=== PATIENT | male | born 1950 | race Caucasian/White ===

== ENCOUNTER 2016-11-01 08:19 | Emergency (ER) | payer OTHER ==
[~2016-11-01] VITALS: Wt 78.0 kg
[~2016-11-01 08:19] MED LIST: ALBU2.5V3 NEB; ALBU8.5H3 INH; AZIT250T94 PO; BENA40TA41 PO; HYD25 PO; PRED20TA PO; PROM5SYR2 PO
[2016-11-01] MEDS ORDERED: ONDANSETRON (ODT) 4 MG TAB ODT STA (09:08)
[2016-11-01] MEDS ORDERED: HYDROCODONE/APAP (5/325) TAB PO ONE (09:30)
--- NOTE | 2016-11-01 11:08 | RADRPT ---
PROCEDURE: XR Chest. CLINICAL INDICATION: Right rib pain and 65-year-old male. TECHNIQUE: Single frontal view of the chest was obtained COMPARISON: Right rib series 11/01/2016 2017 hours. FINDINGS: The soft tissues are normal. There are degenerative osteophytes in the thoracic spine. The heart, cardiomediastinal silhouette, pulmonary vasculature and hilar structures are normal. There are vascu lar calcifications aortic arch. The lungs are clear but are mildly hyperinflated. No acute rib frac ture pneumothorax or hemothorax is identified. The costophrenic angles are normal. IMPRESSION: 1. No evidence of a pneumothorax or acute rib fracture. 2. Atherosclerosis of the aortic arch. 3. Spondylosis of the thoracic spine. 4. Mild pulmonary hyperinflation. RPTAT:AAJJ Physician Nathen Date Time Electronically viewed and signed by Abdiaziz Avery Physician on 11/01/2016 11:08 TRAMAINE/
--- NOTE | 2016-11-01 11:17 | RADRPT ---
PROCEDURE: XR ribs and AP chest. CLINICAL INDICATION: 65-year-old male with right rib pain. TECHNIQUE: AP chest and AP and oblique views of the right ribs were obtained. COMPARISON: Chest x-ray 07/19/2016. FINDINGS: There are atherosclerotic calcifications in the aortic arch. There are degenerative osteophytes in the thoracic spine. The soft tissues are generous. The heart, pulmonary vasculature, lung allen an d pleural spaces are normal. No pneumothorax or rib fractures identified. No pleural effusion or he mothorax is noted. IMPRESSION: 1. Spondylosis of the thoracic spine. 2. Atherosclerosis of the aortic arch. 3. Pulmonary hyperinflation of the right lung with no evidence of a rib fracture, hemothorax or pne umothorax. RPTAT:AAJJ Physician Nathen Date Time Electronically viewed and signed by Abdiaziz Avery Physician on 11/01/2016 11:17 TRAMAINE/
[2016-11-01] MEDS ORDERED: HYDR-906 PO (11:24)
[2016-11-01] MEDS ORDERED: NAPR-260 PO (11:24)
[2016-11-01 11:32] VITALS: BP 132/78; PULSE 78; RESP 18; TEMP 98
--- NOTE | 2016-11-01 17:13 | ERD ---
DATE OF SERVICE: HISTORY OF PRESENT ILLNESS: The patient is a 65-year-old male complaining of right rib pain after a mechanical fall yesterday. Patient was sitting at a table, he tripped and fell and hit the corner of the table. He has taken 600 mg of Advil with mild alleviation of his symptoms, but he has pain t o breathe to the right side of his ribs. He denies any shortness of breath, no hemoptysis. PAST MEDICAL HISTORY: COPD. ALLERGIES TO MEDICATIONS: DENIES. SURGICAL HISTORY: Denies. SOCIAL HISTORY: Denies. REVIEW OF SYSTEMS: A 12-point review of systems was done. Refer to HPI for positives, all other sy stems negative. PHYSICAL EXAMINATION VITAL SIGNS: Temperature is 98, pulse 91, blood pressure is 139/81, respiratory rate 18, O2 saturat ion 99% on room air. Pain intensity is 0/10. GENERAL: The patient is well-appearing, well-nourished, no acute distress. HEART: Regular rate and rhythm. No murmurs, clicks, rubs or gallops. No S3 or S4. CHEST: Clear to auscultation bilaterally. There are no rales, wheezes or rhonchi. SKIN: There is no apparent rash or petechia. The skin is warm and dry. No crepitus felt on the ski n. BACK: Normal. EMERGENCY ROOM COURSE: The patient had a 1-view chest x-ray done in the ER which showed: 1. No evidence of pneumothorax or acute rib fracture. 2. Atherosclerosis of the aortic arch. 3. Spondylosis of the thoracic spine. 4. Mild pulmonary hyperinflation. Patient also had a 2-view x-ray done of the right ribs, which showed spondylosis of the thoracic spi ne, atherosclerosis of the aortic arch, and pulmonary hyperinflation of the right lung with no evide nce of rib fracture, hemothorax, or pneumothorax. DIAGNOSIS: Rib contusion. MEDICAL DECISION MAKING: I have low suspicion for rib fracture, low suspicion for pneumothorax, low suspicion for hemothorax. The patient likely sustained a rib contusion secondary to mechanism, and vitals and exam are within normal limits. DISCHARGE: The patient is discharged stable. Patient given prescription for [place] and naproxen, an d told to follow up with primary care within 1 to 2 days for reevaluation. The patient is recommend ed to continue taking deep breaths to avoid on development of pneumonia. All other questions answer ed at time of discharge. Discharge summary given at the time of departure. Patient understood and complied with plan. Dictated By: EMERSON LANCASTER for DLATON CAI/ELENA Conf#: [id number] DID#: [id number]
== END 2016-11-01 11:33 | disposition home or self-care (01) ==
LOC: FTE 08:19
DX: S20.211A Contusion of right front wall of thorax, initial encounter (principal); J44.9 Chronic obstructive pulmonary disease, unspecified; W01.190A Fall on same level from slipping, tripping and stumbling with subsequent striking against furniture, initial encounter; Y92.9 Unspecified place or not applicable; Z87.891 Personal history of nicotine dependence
CPT/HCPCS: 71010; 71100

== ENCOUNTER 2016-11-13 07:01 | Emergency (ER) | payer OTHER ==
[~2016-11-13] VITALS: Ht 162.6 cm; Wt 72.0 kg
[~2016-11-13 07:01] MED LIST changes: +HYDR-906 PO; +NAPR-260 PO
[2016-11-13 07:03] VITALS: Ht 162.6 cm; Wt 72.0 kg
[2016-11-13] MEDS ORDERED: HYDROCODONE/APAP (10/325) TAB PO ONE (07:30)
[2016-11-13 07:50] LABS: ADD UMIC YES; URINE BILIRUBIN (Dip) NEGATIVE (NEGATIVE); URINE BLOOD (Dip) TRACE (NEGATIVE); URINE COLOR YELLOW (YELLOW); URINE KETONES (Dip) TRACE (NEGATIVE); URINE LEUKOCYTE ESTERASE (Dip) NEGATIVE (NEGATIVE); URINE NITRITE (Dip) NEGATIVE (NEGATIVE); URINE TOTAL PROTEIN (Dip) TRACE (NEGATIVE); URINE UROBILINOGEN (Dip) 0.2 E.U./dL (0.1-1.0)
[2016-11-13 08:10] LABS: BACTERIA,URINE RARE; URINE RBCS 0-2 /HPF (0)
--- NOTE | 2016-11-13 08:35 | RADRPT ---
PROCEDURE: CT chest, abdomen and pelvis without contrast and with 3-D reconstructions CLINICAL INDICATION: right flank pain, r/o lower rib fx vs urolithiasis TECHNIQUE: CT scan of the abdomen and pelvis without contrast was performed on a multislice CT [facility]. 3-D sagittal and coronal reformatted images were obtained from the axial source images. DLP 1109.81 mGycm CTDIvol 14.71 mGy COMPARISON: CT abdomen/pelvis from 01/17/2013 FINDINGS: There are no focal consolidations. There is no evidence of significant pulmonary contusion. There are 2 ground-glass opacities in the right upper lobe each measuring approximately 9 mm on series 4, images 24 and 28. There is no pleural fluid. There is no pneumothorax. Heart size is within normal limits. There is no pericardial fluid. The aorta is within normal limi ts. There are no enlarged axillary or mediastinal lymph nodes. The liver is homogenous in attenuation. Again noted is a cystic lesion in segments 6 and 7 of the li yasmani measuring up to 7.6 x 7.2 cm in maximum axial dimensions, compared with up to 6.2 x 6.[address] th e CT study from 2012. There is no intrahepatic or extrahepatic biliary ductal dilatation. The gall bladder is within normal limits. The spleen, pancreas, and adrenal glands are within normal limits. The kidneys are symmetric and without focal lesions. There are no renal calculi. There is no obstruc tive uropathy. There are no dilated or thickened loops of bowel. The appendix is within normal limits. There are n umerous colonic diverticula without evidence of diverticulitis. The aorta is within normal limits. There are no enlarged mesenteric, periaortic, or retroperitoneal lymph nodes. The bladder is within normal limits. There is no free air. There is no free fluid. There are no enlarged intrapelvic or inguinal lymph nodes. Small fat - containing bilateral inguinal hernias are again noted. IMPRESSION: No evidence of an acute rib fracture or pulmonary contusion. No renal/ureteral calculi or hydronephrosis. There is a large benign - appearing cystic lesion in the right lobe of the liver measuring up to 7.6 cm which has mildly increased in size compared to the prior CT study from 2013 where it measured up to 6.2 cm. Consider ultrasound for further evaluation, if indicated. There are 2 ground-glass opacities each measuring approximately 9 mm in the right upper lobe which a re nonspecific. Consider obtaining an initial 3-month follow-up CT for further evaluation as per [place] eischner Society criteria for subsolid pulmonary nodules. Numerous colonic diverticula without evidence of diverticulitis. Normal appendix. Small fat - containing bilateral inguinal hernias. RPTAT: EE Physician Idania Date Time Electronically viewed and signed by Julio C Simmons Physician on 11/13/2016 08:34 /
[2016-11-13] MEDS ORDERED: CYCL-319 PO (08:47)
[2016-11-13] MEDS ORDERED: HYDR-902 PO (08:47)
--- NOTE | 2016-11-13 08:57 | ERD ---
ER Documentation Chief Complaint Date/Time DATE: 11/13/16 TIME: 08:50 Chief Complaint low back pain. injury 2 weeks ago. HPI 65-year-old male complaining of right lower rib pain 2 weeks. He injured it while playing with his sons 2 weeks ago, was seen here at that time. Last 3 days, his pain has gotten worse. Pain is worse with breathing or movement. He was given [place] and muscle relaxant for pain at his last visit, which have helped. But he has run out of medications. Patient also reports slight dysuria , but no fever or chills. No vomiting or diarrhea. Patient reports history of diabetes, hypertension, COPD, BPH, and kidney stones. ROS All systems reviewed and are negative except as per history of present illness. Medications Home Meds Active Scripts Cyclobenzaprine Hcl* (Cyclobenzaprine Hcl*) 10 Mg Tablet, 10 MG PO TID Y for MUSCLE SPASMS, #15 TAB Prov:FANNY MATHEWS. CUSTOMER SERVICE ANALYST 11/13/16 Hydrocodone/Acetaminophen ([place] 10-325 Tablet) 1 Each Tablet, 1 TAB PO Q6H Y for PAIN, #15 TAB Prov:FANNY MATHEWS. CUSTOMER SERVICE ANALYST 11/13/16 Naproxen* (Naprosyn*) 500 Mg Tablet, 500 MG PO BID Y for PAIN AND/OR INFLAMMATION, #30 TAB Prov:KAYLIN FREEMAN PA-C 11/01/16 Hydrocodone/Acetaminophen ([place] 5-325 Tablet) 1 Each Tablet, 1 TAB PO Q6H Y for PAIN, #7 TAB Prov:KAYLIN FREEMAN PA-C 11/01/16 Promethazine HCl/Codeine (Prometh-Codein 6.25-10 mg/5 ml) 5 Ml Syrup, 5 ML PO TID for 5 Days Prov:MEJIA QUIROZ MD 07/19/16 Albuterol Sulfate* (Albuterol Sulfate* Neb) 0.083%-3 Ml Neb, 2.5 MG NEB Q4 Y for SHORTNESS OF BREATH, #30 EA Prov:MEJIA QUIROZ MD 07/19/16 Prednisone* (Prednisone*) 20 Mg Tab, 20 MG PO DAILY for 5 Days, TAB Prov:MEJIA QUIROZ MD 07/19/16 Azithromycin* (Zithromax*) 250 Mg Tablet, 250 MG PO .ZPACK DIRECTED, #6 TAB TAKE 500 MG (2 TABS) THE FIRST DAY THEN 250 MG (1 TAB) DAYS 2-5 Prov:MEJIA QUIROZ MD 07/19/16 Prednisone* (Prednisone*) 20 Mg Tab, 40 MG PO DAILY, #8 TAB Prov:KAYLIN FREEMAN PA-C 09/11/15 Albuterol Sulfate* (Proair HFA*) 8.5 Gm Hfa.aer.ad, 2 PUFF INH Q4, #1 INHALER Prov:KAYLIN FREEMAN PA-C 09/11/15 Reported Medications Hydrochlorothiazide* (Hydrochlorothiazide*) 25 Mg Tab, 25 MG PO DAILY, #30 TAB 09/13/15 Benazepril Hcl* (Benazepril Hcl*) 40 Mg Tablet, 40 MG PO DAILY, #30 TAB 09/13/15 Allergies Allergies: Coded Allergies: No Known Drug Allergies (Verified Allergy, Mild, 09/13/15) PMhx/Soc Medical and Surgical Hx: pt denies Medical Hx, pt denies Surgical Hx History of Surgery: Yes Anesthesia Reaction: No Hx Neurological Disorder: No Hx Respiratory Disorders: Yes (copd) Hx Cardiac Disorders: No Hx Psychiatric Problems: No Hx Miscellaneous Medical Probl: No Hx Alcohol Use: No Hx Substance Use: No Hx Tobacco Use: No Smoking Status: Never smoker Physical Exam Vitals Vital Signs Date Time Temp Pulse Resp B/P Pulse Ox O2 Delivery O2 Flow Rate FiO2 11/13/16 07:03 97.3 96 20 162/90 10 Physical Exam General impression: Well-developed, well-nourished. Alert, oriented, in no acute distress Head: Normocephalic, atraumatic. Eyes: PERRL, EOM normal. Sclerae are normal. Conjunctiva not injected. Neck: Supple, nontender. No lymphadenopathy. No nuchal rigidity. Respiration: Normal respiratory effort. Lungs clear to auscultate bilaterally. No wheezes, rales or rhonchi. Cardiovascular: Regular rate and rhythm. No murmurs or extra heart sounds. Abdomen: Abdomen normal to inspection. Nontender. No masses or organomegaly. Bowel sounds normal. Back: Normal to inspection. No midline spine tenderness. No CVA tenderness. Right lower rib point tenderness in the posterior aspect. Extremities: Extremities normal to inspection, nontender. ROM normal. Neuro: Mental status normal, speech normal. GLASS PROCESSING WORKER grossly intact. Skin: Normal turgor. No rash or lesions. Psych: Normal mood and affect. Results 24 hrs Laboratory Tests Test 11/13/16 07:42 Urine Color YELLOW Urine Clarity CLEAR Urine pH 6.0 Urine Specific [place] >=1.030 Urine Ketones TRACE Urine Nitrite NEGATIVE Urine Bilirubin NEGATIVE Urine Urobilinogen 0.2 E.U./dL Urine Leukocyte Esterase NEGATIVE Urine Microscopic RBC 0-2/HPF Urine Microscopic WBC 0-2/HPF Urine Epithelial Cells RARE Urine Bacteria RARE Urine Hemoglobin TRACE Urine Glucose 0.1%% Urine Total Protein TRACE Current Medications Medications (Trade) Dose Ordered Sig/Shawn Route PRN Reason Start Time Stop Time Status Last Admin Dose Admin Acetaminophen/ Hydrocodone Bitart ([place] (79/697)) 1 tab ONCE ONCE PO 11/13/16 07:30 11/13/16 07:31 DC 11/13/16 07:41 PROCEDURE: CT chest, abdomen and pelvis without contrast and with 3-D reconstructions CLINICAL INDICATION: right flank pain, r/o lower rib fx vs urolithiasis TECHNIQUE: CT scan of the abdomen and pelvis without contrast was performed on a multislice CT scanner. 3-D sagittal and coronal reformatted images were obtained from the axial source images. DLP 1109.81 mGycm CTDIvol 14.71 mGy COMPARISON: CT abdomen/pelvis from 01/17/2013 FINDINGS: There are no focal consolidations. There is no evidence of significant pulmonary contusion. There are 2 ground-glass opacities in the right upper lobe each measuring approximately 9 mm on series 4, images 24 and 28. There is no pleural fluid. There is no pneumothorax. Heart size is within normal limits. There is no pericardial fluid. The aorta is within normal limits. There are no enlarged axillary or mediastinal lymph nodes. The liver is homogenous in attenuation. Again noted is a cystic lesion in segments 6 and 7 of the liver measuring up to 7.6 x 7.2 cm in maximum axial dimensions, compared with up to 6.2 x 6.[address] study from 2012. There is no intrahepatic or extrahepatic biliary ductal dilatation. The gallbladder is within normal limits. The spleen, pancreas, and adrenal glands are within normal limits. The kidneys are symmetric and without focal lesions. There are no renal calculi. There is no obstructive uropathy. There are no dilated or thickened loops of bowel. The appendix is within normal limits. There are numerous colonic diverticula without evidence of diverticulitis. The aorta is within normal limits. There are no enlarged mesenteric, periaortic , or retroperitoneal lymph nodes. The bladder is within normal limits. There is no free air. There is no free fluid. There are no enlarged intrapelvic or inguinal lymph nodes. Small fat - containing bilateral inguinal hernias are again noted. IMPRESSION: No evidence of an acute rib fracture or pulmonary contusion. No renal/ureteral calculi or hydronephrosis. There is a large benign - appearing cystic lesion in the right lobe of the liver measuring up to 7.6 cm which has mildly increased in size compared to the prior CT study from 2012 where it measured up to 6.2 cm. Consider ultrasound for further evaluation, if indicated. There are 2 ground-glass opacities each measuring approximately 9 mm in the right upper lobe which are nonspecific. Consider obtaining an initial 3-month follow-up CT for further evaluation as per Fleischner Society criteria for subsolid pulmonary nodules. Numerous colonic diverticula without evidence of diverticulitis. Normal appendix. Small fat - containing bilateral inguinal hernias. RPTAT: EE Physician Idania Date Time Electronically viewed and signed by Physician Idania on 11/13/2016 08:34 RA/ CC: FANNY MATHEWS CUSTOMER SERVICE ANALYST Procedures/MDM 65-year-old male presented to ED with right lower rib/right flank pain 2 weeks. Patient was given [place] 10/325 in the ED for pain. Patient reports improvement in pain after [place]. UA is negative for urinary tract infection. CT chest, abdomen, and pelvis without IV contrast was obtained to rule out occult rib fracture versus urolithiasis. No rib fracture or urolithiasis is seen on CT. However, incidental findings of cystic lesions in the liver and 2 ground glass opacities in the lungs were noted on the CT. Patient is notified of the mention results. Both of these incidental findings require PCP follow-up, I do not feel further ED evaluation is indicated at this time. Patient appears well, stable for discharge and outpatient management. Medical decision making shared with patient and family. Education provided to patient and family. Patient and family expressed understanding of the plan. Medications on discharge: [place], Flexeril. Follow-up: Primary care provider in 2-3 days or return to ED if worse. Departure Diagnosis: Primary Impression: Contusion of rib on right side Encounter type: subsequent encounter Qualified Code: S20.211D - Contusion of rib on right side, subsequent encounter Condition: Good Patient Instructions: Rib Contusion Additional Instructions: Call your primary care doctor TOMORROW for an appointment during the next 2-3 days.See the doctor sooner or return here if your condition worsens before your appointment time. FANYN MATHEWS NP Nov 13, 2016 08:57
[2016-11-13 09:04] VITALS: BP 158/70; PULSE 74; RESP 20; TEMP 98.3
== END 2016-11-13 09:05 | disposition home or self-care (01) ==
LOC: FTE 07:01
DX: S20.211D Contusion of right front wall of thorax, subsequent encounter (principal); J44.9 Chronic obstructive pulmonary disease, unspecified; I10 Essential (primary) hypertension; E11.9 Type 2 diabetes mellitus without complications; X58.XXXD Exposure to other specified factors, subsequent encounter
CPT/HCPCS: 71250; 74176; 81001; 81003

== ENCOUNTER 2017-07-11 15:07 | Emergency (ER) | payer OTHER ==
[~2017-07-11] VITALS: Ht 165.1 cm; Wt 72.8 kg
[~2017-07-11 15:07] MED LIST changes: +CYCL-319 PO; -HYD25 PO; +HYDR-902 PO; +HYDR25TA6 PO
[2017-07-11 15:10] VITALS: Ht 165.1 cm; Wt 72.8 kg
[2017-07-11] MEDS ORDERED: NAPR-688 PO (16:12)
[2017-07-11] MEDS ORDERED: AMOX500T PO (16:12)
--- NOTE | 2017-07-11 16:19 | ERD ---
ER Documentation Chief Complaint Chief Complaint runny nose and sorethroat x1 day HPI 66-year-old male presents with sore throat runny nose and mild cough going on since yesterday evening. Is also felt generalized weakness and malaise. His son has similar symptoms started today. This patient is receiving radiation therapy in his lower abdomen currently. He already felt somewhat lightheaded and weak but this new illness made it feel worse. He has no shortness of breath. Does have a history of COPD but does not believe these wheezing. ROS All systems reviewed and are negative except as per history of present illness. Medications Home Meds Active Scripts Amoxicillin Trihydrate (Amoxicillin) 500 Mg Tablet, 500 MG PO BID, #14 TAB Prov:PARI VERGARA DO 07/11/17 Naproxen* (Naproxen*) 500 Mg Tablet, 500 MG PO BID Y for PAIN, #20 TAB Prov:PARI VERGARA DO 07/11/17 Cyclobenzaprine Hcl* (Cyclobenzaprine Hcl*) 10 Mg Tablet, 10 MG PO TID Y for MUSCLE SPASMS, #15 TAB Prov:FANNY MATHEWS NP 11/13/16 Hydrocodone/Acetaminophen ([place] 10-325 Tablet) 1 Each Tablet, 1 TAB PO Q6H Y for PAIN, #15 TAB Prov:FANNY MATHEWS NP 11/13/16 Naproxen* (Naprosyn*) 500 Mg Tablet, 500 MG PO BID Y for PAIN AND/OR INFLAMMATION, #30 TAB Prov:KAYLIN FREEMAN PA-C 11/01/16 Hydrocodone/Acetaminophen ([place] 5-325 Tablet) 1 Each Tablet, 1 TAB PO Q6H Y for PAIN, #7 TAB Prov:KAYLIN FREEMAN PA-C 11/01/16 Promethazine HCl/Codeine (Prometh-Codein 6.25-10 mg/5 ml) 5 Ml Syrup, 5 ML PO TID for 5 Days Prov:MEJIA QUIROZ MD 07/19/16 Albuterol Sulfate* (Albuterol Sulfate* Neb) 0.083%-3 Ml Neb, 2.5 MG NEB Q4 Y for SHORTNESS OF BREATH, #30 EA Prov:MEJIA QUIROZ MD 07/19/16 Prednisone* (Prednisone*) 20 Mg Tab, 20 MG PO DAILY for 5 Days, TAB Prov:MEJIA QUIROZ MD 07/19/16 Azithromycin* (Zithromax*) 250 Mg Tablet, 250 MG PO .StivenPACK DIRECTED, #6 TAB TAKE 500 MG (2 TABS) THE FIRST DAY THEN 250 MG (1 TAB) DAYS 2-5 Prov:MEJIA QUIROZ MD 07/19/16 Prednisone* (Prednisone*) 20 Mg Tab, 40 MG PO DAILY, #8 TAB Prov:KAYLIN FREEMAN PA-C 09/11/15 Albuterol Sulfate* (Proair HFA*) 8.5 Gm Hfa.aer.ad, 2 PUFF INH Q4, #1 INHALER Prov:KAYLIN FREEMAN PA-C 09/11/15 Reported Medications Hydrochlorothiazide* (Hydrochlorothiazide*) 25 Mg Tab, 25 MG PO DAILY, #30 TAB 09/13/15 Benazepril Hcl* (Benazepril Hcl*) 40 Mg Tablet, 40 MG PO DAILY, #30 TAB 09/13/15 Allergies Allergies: Coded Allergies: No Known Drug Allergies (Verified Allergy, Mild, 09/13/15) PMhx/Soc History of Surgery: Yes Anesthesia Reaction: No Hx Neurological Disorder: No Hx Respiratory Disorders: Yes (copd) Hx Cardiac Disorders: No Hx Psychiatric Problems: No Hx Miscellaneous Medical Probl: No Hx Alcohol Use: No Hx Substance Use: No Hx Tobacco Use: No Physical Exam Vitals Vital Signs Date Time Temp Pulse Resp B/P Pulse Ox O2 Delivery O2 Flow Rate FiO2 07/11/17 15:10 97.7 100 18 118/66 97 Physical Exam Const: [] Acute distress Head: Atraumatic Eyes: Normal Conjunctiva ENT: Normal External Ears, Nose and Mouth. Oropharynx within normal limits, moist mucous membranes Neck: Full range of motion..~ No meningismus. Resp: Clear to auscultation bilaterally Cardio: Regular rate and rhythm, no murmurs Skin: No petechiae or rashes Ext: No cyanosis, or edema Neur: Awake and alert Psych: Normal Mood and Affect Procedures/MDM This patient likely has a viral upper respiratory infection. However because of his radiation therapy and malignancy he is at risk for bacterial infection. Is also elderly and I feel more comfortable giving him a [id number] amoxicillin prescription in case he develops a bacterial infection I would not want him to develop sepsis and have increased morbidity. I am discharging him with naproxen as well as an amoxicillin prescription. Primary care follow-up in 2-3 days and return precautions. Departure Diagnosis: Primary Impression: Bronchitis, acute Additional Impression: URI, acute Condition: Stable Patient Instructions: Bronchitis, Antiobiotic Treatment (Adult), Uri, Viral, No Abx (Adult) Additional Instructions: Call your primary care doctor TOMORROW for an appointment during the next 2-3 days.See the doctor sooner or return here if your condition worsens before your appointment time. PARI VERGARA DO Jul 11, 2017 16:19
== END 2017-07-11 16:22 | disposition home or self-care (01) ==
LOC: FTE 15:07
DX: J20.9 Acute bronchitis, unspecified (principal); J06.9 Acute upper respiratory infection, unspecified; J44.9 Chronic obstructive pulmonary disease, unspecified
CPT/HCPCS: 99283

== ENCOUNTER 2017-10-01 06:55 | Inpatient (IN) | END 2017-10-02 13:10 | disposition home or self-care (01) | DRG 872 ==